=== PATIENT | female | born 1955 | race Hispanic/Latino ===

== ENCOUNTER → 2023-09-12 | Outpatient (CLI) | payer OTHER | END | disposition home or self-care (01) | LOC: SHCH 15:04 | PROVIDERS: ATTEND Student in an Organized Health Care Education/Training Program | DX: I48.0 Paroxysmal atrial fibrillation (principal); I10 Essential (primary) hypertension; E78.5 Hyperlipidemia, unspecified | CPT/HCPCS: 93306 ==

== ENCOUNTER → 2023-10-19 | Outpatient (CLI) | payer OTHER ==
[~2023-10-19] MED LIST: IOHEXOL 350 MG/ML 100ML INFUS..BTL IV ONE
== END | disposition home or self-care (01) ==
LOC: RAH 08:28
PROVIDERS: ATTEND Student in an Organized Health Care Education/Training Program
DX: I25.10 Atherosclerotic heart disease of native coronary artery without angina pectoris (principal); R00.2 Palpitations
CPT/HCPCS: 75574; Q9967

== ENCOUNTER → 2024-10-08 | Outpatient (CLI) | payer OTHER | END | disposition home or self-care (01) | LOC: SHCH 14:45 | PROVIDERS: ATTEND Student in an Organized Health Care Education/Training Program | DX: I08.3 Combined rheumatic disorders of mitral, aortic and tricuspid valves (principal); R06.00 Dyspnea, unspecified | CPT/HCPCS: 93306 ==

== ENCOUNTER → 2024-12-24 | Outpatient (CLI) | payer OTHER ==
[~2024-12-24] VITALS: Ht 154.9 cm; Wt 105.0 kg
[~2024-12-24] MED LIST changes: +AMLO-257 PO; +APIX5TAB PO; +CARV25TA PO; +CETI10CA5 PO; +CHOL500045 PO; +FURO20TA4 PO; -IOHEXOL 350 MG/ML 100ML INFUS..BTL IV ONE; +LEVO112C5 PO; +LISI1TAB53 PO; +LOVA20TA3 PO; +METF-444 PO; +MONT-39 PO; +MULT-1367 PO
[2024-12-24 13:08] LABS: BASOPHILS # (AUTO) 0.04 K/uL (0.00-0.20); BASOPHILS % (AUTO) 0.7 % (0.0-5.0); EOSINOPHILS # (AUTO) 0.07 K/uL (0.00-0.70); EOSINOPHILS % (AUTO) 1.3 % (0.0-8.0); HEMATOCRIT 41.5 % (36-48); IMMATURE GRANULOCYTE ABSOLUTE 0.02 K/uL (0-1); LYMPHOCYTES # (AUTO) 1.7 K/uL (1.0-4.8); MEAN CORPUSCULAR HEMOGLOBIN 30.6 pg (27.0-33.0); MONOCYTES # (AUTO) 0.5 K/uL (0.1-1.0); MONOCYTES % (AUTO) 9.3 % (3.0-13.0); NEUTROPHILS # (AUTO) 3.3 K/uL (1.8-7.7); NEUTROPHILS % (AUTO) 58.3 % (40.0-77.0); PLATELET COUNT (AUTO) 217 K/uL (130-400); RED BLOOD CELL COUNT(AUTO) 4.61 MIL/uL (4.00-5.50); WHITE BLOOD COUNT (AUTO) 5.6 K/uL (4.8-10.8)
[2024-12-24 13:16] LABS: CREATININE 0.8 mg/dL (0.5-1.0); POTASSIUM 3.6 mmol/L (3.5-5.1)
[2024-12-24 13:17] LABS: INR 1.17 (0.85-1.15); PROTHROMBIN TIME 12.2 SEC (9.6-11.6)
[2024-12-24 13:18] LABS: PARTIAL THROMBOPLASTIN TIME 30.5 SEC (26.3-35.5)
[2024-12-24 13:30] VITALS: BP 138/81; PULSE 58; RESP 16; TEMP 97.6
== END | disposition home or self-care (01) ==
LOC: CANPRESDC → DAH 12:01 → EDSTATUS 16:00
PROVIDERS: ATTEND Student in an Organized Health Care Education/Training Program
DX: Z01.812 Encounter for preprocedural laboratory examination (principal); I48.0 Paroxysmal atrial fibrillation
CPT/HCPCS: 36415; 80048; 85025; 85610; 85730

== ENCOUNTER 2025-01-03 11:03 | Day surgery (SDC) | payer OTHER ==
[2025-01-02 13:08] LABS: BASOPHILS # (AUTO) 0.04 K/uL (0.00-0.20); BASOPHILS % (AUTO) 0.6 % (0.0-5.0); EOSINOPHILS # (AUTO) 0.05 K/uL (0.00-0.70); EOSINOPHILS % (AUTO) 0.8 % (0.0-8.0); HEMATOCRIT 41.8 % (36-48); IMMATURE GRANULOCYTE ABSOLUTE 0.01 K/uL (0-1); LYMPHOCYTES # (AUTO) 1.7 K/uL (1.0-4.8); LYMPHOCYTES % (AUTO) 26.1 % (21.0-51.0); MEAN CORPUSCULAR HEMOGLOBIN 31.2 pg (27.0-33.0); MEAN CORPUSCULAR HGB CONC 34.7 g/dL (32.0-36.0); MEAN CORPUSCULAR VOLUME 89.9 fL (79-99); MONOCYTES # (AUTO) 0.5 K/uL (0.1-1.0); MONOCYTES % (AUTO) 7.9 % (3.0-13.0); NEUTROPHILS # (AUTO) 4.2 K/uL (1.8-7.7); NEUTROPHILS % (AUTO) 64.4 % (40.0-77.0); PLATELET COUNT (AUTO) 223 K/uL (130-400); RED BLOOD CELL COUNT(AUTO) 4.65 MIL/uL (4.00-5.50); RED CELL DISTRIBUTION WIDTH 15.6 % (11.0-15.5); WHITE BLOOD COUNT (AUTO) 6.5 K/uL (4.8-10.8)
[2025-01-02 13:12] VITALS: BP 136/79; PULSE 91; RESP 15; TEMP 97.7
[2025-01-02 13:14] LABS: CREATININE 0.6 mg/dL (0.5-1.0); POTASSIUM 3.9 mmol/L (3.5-5.1)
[2025-01-02 13:17] LABS: INR 1.17 (0.85-1.15); PROTHROMBIN TIME 12.2 SEC (9.6-11.6)
[2025-01-02 13:19] LABS: PARTIAL THROMBOPLASTIN TIME 29.6 SEC (26.3-35.5)
[2025-01-03] VITALS (7 sets, daily range): BP systolic 89–131; BP diastolic 50–70; PULSE 43–78; RESP 14–15; TEMP 97.5–97.7
[~2025-01-03] VITALS: Ht 154.9 cm; Wt 104.3 kg
[~2025-01-03 11:03] MED LIST changes: -AMLO-257 PO; -CHOL500045 PO; -METF-444 PO; -MULT-1367 PO
[2025-01-03] MEDS: LIDOCAINE HCL 2% VISCOUS 15 ML UDCUP PO ONE (11:30)
--- NOTE | 2025-01-03 12:22 | NUR ---
IFEANYI PROBE ADVANCED AT THIS TIME NAD VSS.
--- NOTE | 2025-01-03 12:27 | NUR ---
IFEANYI PROBE OUT IFEANYI FINISHED. PT TOLERATED IFEANYI WELL. SYNCHRONIZED CARDIOVERSION TO FOLLOW
--- NOTE | 2025-01-03 12:27 | NUR ---
BUBBLE STUDY DONE AT THIS TIME VSS NAD
[2025-01-03] MEDS ORDERED: PERFLUTREN PROTEIN-A MICROSPHR 0.22 MG/ML VIAL IV ONE (12:30)
--- NOTE | 2025-01-03 12:32 | NUR ---
PT SYNCHRONIZED CARDIOVERTED 200 JOULES PT TOLERATED WELL NAD VSS
--- NOTE | 2025-01-03 12:35 | NUR ---
PT DROWSY SPEAKING WITH STAFF COLETTE ARENAS
[2025-01-03] MEDS: MIDAZOLAM HCL 1 MG/ML 2ML VIAL IVP ONE (13:33)
[2025-01-03] MEDS: FENTanyl CITRate PF 50 MCG/1 ML 2ML VIAL IVP ONE (13:34)
[2025-01-03] MEDS: 0.9%NACL 1000ML 1,000 ML IV SCH (13:34)
--- NOTE | 2025-01-03 13:40 | NUR ---
BOTH PT AND SPOUSE GIVEN VERBAL AND WRITTEN. PT TAKEN OUT VIA WHEELCHAIR DRIVING
--- NOTE | 2025-01-03 14:14 | EKG ---
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
--- NOTE | 2025-01-06 08:02 | EKG ---
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
--- NOTE | 2025-01-08 11:19 | HMCSR ---
APPROVED REPORT EXAM: Transesophageal echocardiogram with color flow Doppler. INDICATION ICD: I48.0 Chronic AF Reason For Test : Rule out Intracardiac Thrombus. PROCEDURE After obtaining informed consent, patient underwent transesophageal echo in the daypatient room 15 15 mL 2% Viscous Lidocaine was given as a topical anesthetic prior to the administration of the consc ious sedation. Type of Sedation: Conscious SedationConscious Sedation Sedation was administered by Please refer to medication admisitration record. . Sedation was achieved with Please refer to medication admisitration record. intravenously. Transesophageal probe was inserted and advanced into esophagus without difficulty by Leanna JEONG , Jam Xiong MD . Echo enhancement indication: R/O Septal defect.R/O thrombus Echo enhancement agent administered: Agitated Saline/ Optison 3mL . IFEANYI was performed and images were obtained, probe was removed without complications. Prior to cardioversion, of Please refer to medication admisitration record. was administered. Synchronized Cardioversion attempted: Successful Synchronized Cardioversion acheived with 200 Joules after 1 attempt(s). Rhythm following Synchronized Cardioversion: Sinus Bradycardia Throughout the procedure, the blood pressure, pulse oximetry, cardiac rhythm, and rate were monitored . Left Ventricle The left ventricle is normal size. There is normal left ventricular wall thickness. LVEF is 45-50%. T he left ventricular diastolic function is normal. Right Ventricle The right ventricle is normal size. The right ventricular systolic function reduced. Atria The left atrium is severely dilated.Spontaneous contrast noted in right atrium. No left atrial append age thrombus noted. Negative bubble study. No evidence of PFO by color doppler. The right atrium is severely dilated. Spontaneous contrast noted in right atrium. There is no mass or thrombus suspected in the right atrium. Aortic Valve Aortic valve is trileaflet thickened and opens well. Mild aortic regurgitation is present. There is n o aortic valvular stenosis. Mitral Valve The mitral valve is normal in structure. There is mild mitral valve regurgitation noted. There is no mitral valve stenosis. Tricuspid Valve The tricuspid valve opens normal and appear myxomatous. There is mild tricuspid valve regurgitation n oted. Pulmonic Valve The pulmonary valve is normal in structure. There is no pulmonic valvular regurgitation. Great Vessels The aortic root is normal in size. Ascending aorta appears normal in size. Descending aorta appears n ormal in size. The IVC is normal in size and collapses >50% with inspiration. Pericardium There is no pericardial effusion. Conclusion Left ventricle is normal in size with a boderline reduced systolic function. Estimated LVEF of 45-50% by visual estimate. Right ventricle is normal in size and systolic function. Both atria are severely dilated. Normal Bubble study. No intrcardiac thrombus observed. Mild mitral regurgitation. There is no pericardial effusion.
== END 2025-01-03 13:50 | disposition home or self-care (01) ==
LOC: DAH 11:03
PROVIDERS: ATTEND Student in an Organized Health Care Education/Training Program
DX: I48.20 Chronic atrial fibrillation, unspecified (principal); I08.1 Rheumatic disorders of both mitral and tricuspid valves; I49.1 Atrial premature depolarization; E78.5 Hyperlipidemia, unspecified; I25.10 Atherosclerotic heart disease of native coronary artery without angina pectoris; I11.9 Hypertensive heart disease without heart failure; I48.91 Unspecified atrial fibrillation; I49.8 Other specified cardiac arrhythmias; R73.03 Prediabetes; R94.31 Abnormal electrocardiogram [ECG] [EKG]; Z79.890 Hormone replacement therapy; Z98.890 Other specified postprocedural states; Z79.899 Other long term (current) drug therapy; Z90.710 Acquired absence of both cervix and uterus
CPT/HCPCS: 80048; 85025; 85610; 85730; 36415; 99152; 92960; 82948; 93325; 93312; 93005 ×2; J3010; J7030; J2250; A4615; A4215; A4223 ×3; A4657; A7002; A4222; A4221; A4663; A4216; A4606; G0500

== ENCOUNTER 2025-05-15 09:37 | Day surgery (SDC) | payer OTHER ==
[2025-05-13 12:47] LABS: IMMATURE GRANULOCYTE ABSOLUTE 0.01 K/uL (0-1); NUCLEATED RED BLOOD CELLS 0.0 % (0.0-0.19); PLATELET COUNT (AUTO) 237 K/uL (130-400); RED BLOOD CELL COUNT(AUTO) 4.40 MIL/uL (4.00-5.50); RED CELL DISTRIBUTION WIDTH 15.5 % (11.0-15.5); WHITE BLOOD COUNT (AUTO) 6.6 K/uL (4.8-10.8)
[2025-05-13 12:58] LABS: CREATININE 0.7 mg/dL (0.5-1.0); GLOMERULAR FILTR. RATE CALC 95.0 mL/min (>90); GLUCOSE,RANDOM 73.0 mg/dL (70-105); SODIUM SERUM 138.0 mmol/L (136-145); UREA NITROGEN, BLOOD 15.0 mg/dL (7-18)
[2025-05-13 13:07] VITALS: BP 121/68; PULSE 75; RESP 14; TEMP 97.5
[2025-05-15] VITALS (7 sets, daily range): BP systolic 105–150; BP diastolic 56–91; PULSE 39–89; RESP 15–16; TEMP 97.8–97.9
[~2025-05-15] VITALS: Ht 154.9 cm; Wt 103.3 kg
[~2025-05-15 09:37] MED LIST changes: +DRON400T7 PO; -FURO20TA4 PO; -MONT-39 PO
[2025-05-15] MEDS ORDERED: LIDOCAINE PF 100MG/5ML (2%) SYRINGE 5ML ONE (09:43)
[2025-05-15] MEDS ORDERED: GLYCOPYRROLATE 0.2 MG/ML 5 ML VIAL ONE (09:43)
--- NOTE | 2025-05-15 11:42 | EKG ---
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
--- NOTE | 2025-05-15 12:04 | EKG ---
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
--- NOTE | 2025-05-15 12:54 | NUR ---
DR. ULLOA AWARE OF HEART RATE REMAINING IN THE 40'S WAS TOLD TO HAVE PT CUT THE CARVEDILOL IN HALF BID PT DAUGHTER AWARE.
--- NOTE | 2025-05-15 13:20 | NUR ---
PT AND FAMILY GIVEN VERBAL AND WRITTEN DISCHARGE INSTRUCTIONS IV REMOVED SITE ASYMPTOMATIC. PT TAKEN OUT VIA WHEELCHAIR SPOUSE DRIVING.
--- NOTE | 2025-06-06 07:40 | PRN ---
Procedure Note INDICATION FOR PROCEDURE: Persistent atrial fibrillation PROCEDURE: Cardioversion DATE OF PROCEDURE: 05/15/25 CARD GRINDER: Reece Ulloa MD PROCEDURE NOTE: The patient was prepared in the day patient area in a fasting state. General anesthesia was provided by the anesthesia service. Synchronized cardioversion was performed resulting in sinus rhythm. The patient tolerated the procedure well and there were no complications. IMPRESSION: Persistent atrial fibrillation, status post successful cardioversion PLAN: The patient will be observed and discharged home later this morning and will follow-up with me in the office in approximately 2 weeks. REECE ULLOA MD Jun 06, 2025 07:40
== END 2025-05-15 13:25 | disposition home or self-care (01) ==
LOC: DAH 09:37
PROVIDERS: ATTEND Internal Medicine Cardiovascular Disease
DX: I48.19 Other persistent atrial fibrillation (principal); I42.0 Dilated cardiomyopathy; I10 Essential (primary) hypertension; E11.9 Type 2 diabetes mellitus without complications; E66.9 Obesity, unspecified; I25.10 Atherosclerotic heart disease of native coronary artery without angina pectoris; E03.9 Hypothyroidism, unspecified; Z68.41 Body mass index [BMI] 40.0-44.9, adult; Z79.01 Long term (current) use of anticoagulants; Z79.899 Other long term (current) drug therapy
CPT/HCPCS: 80048; 85025; 36415; 92960; 82948; 93005 ×2; J2003; J3490 ×2; J2704; A4620; A4215; A4222; A4221; A4663; A4216; A4606; A4223 ×3